=== PATIENT | male | born 1970 | race Caucasian/White ===

== ENCOUNTER 2017-11-07 09:44 | Emergency (ER) | payer MEDICARE, OTHER, SELFPAY ==
[2017-11-07 09:56] VITALS: BP 118/77; PULSE 64; RESP 15; TEMP 37.1; O2SAT 100; BMI 28.5
--- NOTE | 2017-11-07 10:02 | DI.RAD.S_ITS ---
PROCEDURE: XR FOOT RT MIN 3V INDICATIONS: wounds TECHNIQUE: 3 views of the right foot were acquired. COMPARISON: [facility], CR, XR FOOT LT MIN 3V, 11/07/2017, 9:42. FINDINGS: Bones: There is abnormal lucency in the 4th metatarsal distally as well as the base of the 4th proximal phalanx centered around the metatarsophalangeal joint. There is also fragmentation of the 4th metatarsal head as well as periosteal thickening along the 4th metatarsal shaft. The constellation of findings are suggestive of osteomyelitis/septic arthritis. Abnormal bony erosive changes and sclerosis are also demonstrated more distally within the 4th toe with the middle and distal phalanges not well visualized. Findings are compatible sequela of osteomyelitis and likely postsurgical changes. Erosive changes are also demonstrated within the 2nd and 3rd distal phalanges compatible with sequelae of osteomyelitis. There is lucency within the medial aspect of the 1st middle and distal phalanges associated with an overlying ulcer suspicious for osteomyelitis. A mild hallux valgus is present as well as a pes planus. Soft tissues: There is a soft tissue ulcer medially in the great toe. There is diffuse soft tissue swelling of the toes. IMPRESSION: 1. Findings compatible with osteomyelitis in the right forefoot as described including sequelae of osteomyelitis/septic arthritis centered at the 4th metatarsophalangeal joint. Dictated by: Jeremy Palacio M.D. on 11/07/2017 at 10:39 Approved by: Jeremy Palacio M.D. on 11/07/2017 at 10:47
--- NOTE | 2017-11-07 10:02 | DI.RAD.S_ITS ---
PROCEDURE: XR FOOT LT MIN 3V INDICATIONS: wounds TECHNIQUE: 3 views of the foot were acquired. COMPARISON: [facility], CR, XR FOOT RT MIN 3V, 11/07/2017, 9:42. FINDINGS: Bones: There are abnormal lucencies and erosive bony changes in the 2nd and 3rd toes with bony destruction of the 3rd middle and distal phalanges as well centered along the 3rd distal interphalangeal and metatarsophalangeal joints. Erosive changes also the centered along the 2nd proximal interphalangeal joint. There is a moderate hallux valgus. Mild degeneration is noted at the 1st metatarsophalangeal joint. Soft tissues: There is soft tissue swelling of the toes including marked enlargement of the 2nd and 3rd toes. IMPRESSION: 1. Findings compatible with osteomyelitis in the 2nd and 3rd toes including suspected septic arthritis of the 3rd metatarsophalangeal joint, 2nd proximal interphalangeal joint, and 3rd distal interphalangeal joint. Dictated by: Jeremy Palacio M.D. on 11/07/2017 at 10:47 Approved by: Jeremy Palacio M.D. on 11/07/2017 at 10:55
[2017-11-07 11:22] VITALS: BP 115/82; PULSE 55; RESP 14; O2SAT 100
--- NOTE | 2017-11-07 12:04 | ED.LOWEXIN ---
HPI - Extremity Injury (Lower) General Chief Complaint: Extremity Injury, Lower Stated Complaint: sent by doctor to have toes looked at-can see bone Time Seen by Provider: 11/07/17 10:47 Source: patient Mode of arrival: ambulatory Limitations: no limitations History of Present Illness HPI Narrative: Patient is a 47-year-old male who presents with bilateral foot pain he. He has what appears to be chronic osteomyelitis. His left foot is erythematous the dorsal side. He says it has been red for the last 4 days. He recently traveled from [place] to [place] on . He was told that he would likely need some toes amputated and was just waiting for the right times a however now his foot is red. He denies any increased pain he does have some chronic neuropathy. Is no fever or chills. Some wounds on his feet are actively drainage with a foul smell. Related Data Home Medications Medication Instructions Recorded Confirmed amoxicillin-pot clavulanate 1 tab PO BID 11/07/17 11/07/17 [Augmentin] diazepam 10 mg PO QID 11/07/17 11/07/17 hydrocodone-acetaminophen 1 tab PO 6XD 11/07/17 11/07/17 sulfamethoxazole-trimethoprim 1 tab PO BID 11/07/17 11/07/17 Allergies Allergy/AdvReac Type Severity Reaction Status Date / Time No Known Drug Allergies Allergy Verified 11/07/17 09:55 Review of Systems Review of Systems All systems reviewed & are unremarkable except as noted in HPI and below Constitutional Denies chills, Denies fever(s), Denies lethargy and Denies weakness ENT Ears, Nose, Mouth, and Throat: Denies change in voice, Denies neck pain and Denies sore throat Cardiovascular Denies chest pain, Denies irregular heart rhythm, Denies lightheadedness, Denies palpitations, Denies dyspnea, Denies dyspnea on exertion and Denies orthopnea Respiratory Denies cough, Denies dyspnea, Denies dyspnea on exertion and Denies wheezing Gastrointestinal Gastrointestinal: Denies abdominal pain, Denies change in bowel habits, Denies diarrhea, Denies nausea and Denies vomiting Musculoskeletal Reports as per HPI, Reports deformity, Reports arthralgias, Reports joint swelling and Denies neck pain Integumentary/Breasts Reports system reviewed and no additional complaints, except as docu and Reports as per HPI Neurologic Denies weakness Comments: neuropathy Endocrine Denies palpitations Comments: Used to be DM-now says he isn't not on meds. Allergic/Immunologic Denies wheezing PFSH Medical History Diabetes (Acute) Hypertension (Acute) Neuropathy associated with endocrine disorder (Acute) Surgical History Hx of spinal fusion (Acute) Social History Smoking Status: Current every day smoker Exam Initial Vital Signs Initial Vital Signs: Vital Signs Temperature 98.7 F 11/07/17 09:56 Pulse Rate 64 11/07/17 09:56 Respiratory Rate 15 11/07/17 09:56 Blood Pressure 118/77 11/07/17 09:56 Pulse Oximetry 100 11/07/17 09:56 Const General: cooperative and healthy appearing Nutritional Appearance: average body habitus HENMT Head: normal to inspection and normocephalic Eyes General: appearance normal, both eyes and all related structures Chest Chest: normal inspection of the chest Resp Effort & Inspection: normal respiratory effort, able to speak in complete sentences, no respiratory distress and no use of accessory muscles Auscultation: clear to auscultation bilaterally, no rales, no rhonchi and no wheezes Cardio Rate: regular rate Rhythm: regular rhythm Heart Sounds: no click, no gallops, no murmurs and no rubs Pulses: normal peripheral pulses Skin Other: Track dobbins, Erythema noted on the left dorsal all foot is outlined from yesterday. Left foot: Large ulcer on 2nd and 3rd toe, which does appear very deep. The 2nd toe is extremely swollen and deformed of there is some pus at the base of the toe. Left foot on the plantar side also has a very large open callus Right foot or: The great toe and 4th toe also have a dry ulcer Neuro General: alert, awake and oriented x3 Cranial Nerves: CN's II-XI intact bilaterally Course Orders Ordered: ED Orders 11/07/17 12:00 Basic Metabolic Panel Stat C-Reactive Protein Quant Stat Complete Blood Count AUTO DIFF Stat Erythrocyte Sedimentation Rate Stat Procalcitonin Stat 11/07/17 12:56 Blood Culture Stat Discontinued Medications Levofloxacin (Levaquin) 750 mg in 150 mls @ 100 mls/hr IV NOW ONE Stop: 11/07/17 16:51 Last Infusion: 11/07/17 17:43 Dose: 0 mls/hr Admin: 11/07/17 15:55 Dose: 100 mls/hr Vancomycin HCl 1,500 mg/ (Sodium Chloride) 500 mls @ 333.333 mls/hr IV NOW ONE Stop: 11/07/17 15:23 Last Admin: 11/07/17 17:59 Dose: 333.333 mls/hr Vital Signs - 8 hr 11/07/17 11:22 11/07/17 16:15 11/07/17 18:53 Temperature 98.9 F Pulse Rate 55 L 64 71 Respiratory Rate 14 16 14 Blood Pressure [Left Arm] 115/82 H 117/76 129/84 H Pulse Oximetry 100 100 99 11/07/17 19:01 Temperature Pulse Rate 66 Respiratory Rate 14 Blood Pressure [Left Arm] 118/78 Pulse Oximetry 99 MDM - Extremity Injury (Lower) Lab Data Attestation: I reviewed the patient's lab results. Result diagrams: 11/07/17 12:00 11/07/17 12:00 Lab Results 11/07/17 11/07/17 11/07/17 Range/Units 12:00 12:00 12:00 WBC 13.5 H (4.5-11.0) X10^3/uL RBC 4.09 L (4.5-5.9) X10^6/uL Hgb 13.5 (13.5-17.5) g/dL Hct 39.6 L (41-53) % MCV 96.7 (80-100) fL MCH 33.1 (26-34) PG MCHC 34.2 (30-36) % RDW 12.7 (11.6-14.8) % Plt Count 337 (150-400) X10^3/uL Neut % (Auto) 73.5 (50-75) % Lymph % (Auto) 15.5 L (25-40) % [place] % (Auto) 8.3 (3-14) % Eos % (Auto) 1.8 L (2-4) % Baso % (Auto) 0.9 (0-2) % Neut # (Auto) 9900 H (5643-8157) /uL ESR 44 H (0-15) MM/HR Sodium (137-145) mmol/L Potassium (3.4-5.1) mmol/L Chloride (98-107) mmol/L Carbon Dioxide (22-32) mmol/L BUN (9-20) mg/dL Creatinine (0.66-1.25) mg/dL Estimated GFR (>60) mL/min BUN/Creatinine Ratio (6-22) Glucose (70-100) mg/dL Calcium (8.4-10.2) mg/dL C-Reactive Protein (<1.0) mg/dL Procalcitonin < 0.05 (<0.5) ng/mL 11/07/17 Range/Units 12:00 WBC (4.5-11.0) X10^3/uL RBC (4.5-5.9) X10^6/uL Hgb (13.5-17.5) g/dL Hct (41-53) % MCV (80-100) fL MCH (26-34) PG MCHC (30-36) % RDW (11.6-14.8) % Plt Count (150-400) X10^3/uL Neut % (Auto) (50-75) % Lymph % (Auto) (25-40) % [place] % (Auto) (3-14) % Eos % (Auto) (2-4) % Baso % (Auto) (0-2) % Neut # (Auto) (2780-1669) /uL ESR (0-15) MM/HR Sodium 141 (137-145) mmol/L Potassium 4.7 (3.4-5.1) mmol/L Chloride 106 (98-107) mmol/L Carbon Dioxide 25 (22-32) mmol/L BUN 15 (9-20) mg/dL Creatinine 0.70 (0.66-1.25) mg/dL Estimated GFR > 60.0 (>60) mL/min BUN/Creatinine Ratio 21.4 (6-22) Glucose 108 H (70-100) mg/dL Calcium 8.7 (8.4-10.2) mg/dL C-Reactive Protein 14.3 H (<1.0) mg/dL Procalcitonin (<0.5) ng/mL Imaging Data left foot: Radiologist's impression: PROCEDURE: XR FOOT LT MIN 3V INDICATIONS: wounds TECHNIQUE: 3 views of the foot were acquired. COMPARISON: [facility], CR, XR FOOT RT MIN 3V, 11/07/2017, 9:42. FINDINGS: Bones: There are abnormal lucencies and erosive bony changes in the 2nd and 3rd toes with bony destruction of the 3rd middle and distal phalanges as well centered along the 3rd distal interphalangeal and metatarsophalangeal joints. Erosive changes also the centered along the 2nd proximal interphalangeal joint. There is a moderate hallux valgus. Mild degeneration is noted at the 1st metatarsophalangeal joint. Soft tissues: There is soft tissue swelling of the toes including marked enlargement of the 2nd and 3rd toes. IMPRESSION: 1. Findings compatible with osteomyelitis in the 2nd and 3rd toes including suspected septic arthritis of the 3rd metatarsophalangeal joint, 2nd proximal interphalangeal joint, and 3rd distal interphalangeal joint. Dictated by: Jeremy Palacio M.D. on 11/07/2017 at 10:47 Approved by: Jeremy Palacio M.D. on 11/07/2017 at 10:55 right foot: Radiologist's impression: PROCEDURE: XR FOOT RT MIN 3V INDICATIONS: wounds TECHNIQUE: 3 views of the right foot were acquired. COMPARISON: [facility], CR, XR FOOT LT MIN 3V, 11/07/2017, 9:42. FINDINGS: Bones: There is abnormal lucency in the 4th metatarsal distally as well as the base of the 4th proximal phalanx centered around the metatarsophalangeal joint. There is also fragmentation of the 4th metatarsal head as well as periosteal thickening along the 4th metatarsal shaft. The constellation of findings are suggestive of osteomyelitis/septic arthritis. Abnormal bony erosive changes and sclerosis are also demonstrated more distally within the 4th toe with the middle and distal phalanges not well visualized. Findings are compatible sequela of osteomyelitis and likely postsurgical changes. Erosive changes are also demonstrated within the 2nd and 3rd distal phalanges compatible with sequelae of osteomyelitis. There is lucency within the medial aspect of the 1st middle and distal phalanges associated with an overlying ulcer suspicious for osteomyelitis. A mild hallux valgus is present as well as a pes planus. Soft tissues: There is a soft tissue ulcer medially in the great toe. There is diffuse soft tissue swelling of the toes. IMPRESSION: 1. Findings compatible with osteomyelitis in the right forefoot as described including sequelae of osteomyelitis/septic arthritis centered at the 4th metatarsophalangeal joint. Dictated by: Jeremy Palacio M.D. on 11/07/2017 at 10:39 MDM Narrative Medical decision making narrative: This is likely chronic osteomyelitis with acute cellulitis. He has elevated ESR and CRP with mild leukocytosis. He does some mild neuropathy on his feet as well. There is questionable bone exposure on his left foot. He has been informed that he will likely need amputation of multiple toes. Dr. Scanlon hospitalist in the ED to evaluate patient. I think the patient needs to be transferred to a [facility] facility where the have orthopedics and vascular surgery if needed will likely need amputation. Is spoken to Dr. Nielson hospitalist at [place] who has been updated patient's symptoms and test results of accepts patient for transfer. Discharge Plan Departure Patient Disposition: [facility] Clinical Impression: Osteomyelitis, Cellulitis, Neuropathy Prescriptions: No Action hydrocodone-acetaminophen 10-325 mg Tablet 1 tab PO 6XD RF: 0 diazepam 10 mg Tablet 10 mg PO QID RF: 0 sulfamethoxazole-trimethoprim 800-160 mg Tablet 1 tab PO BID RF: 0 amoxicillin-pot clavulanate [Augmentin] 875-125 mg Tablet 1 tab PO BID RF: 0
[2017-11-07 12:22] LABS: Add Manual Diff / Slide Review NO; Basophils Percent Auto 0.9 % (0-2); Eosinophils Percent Auto 1.8 % (2-4); Hematocrit 39.6 % (41-53); Hemoglobin 13.5 g/dL (13.5-17.5); Lymphocytes Percent Auto 15.5 % (25-40); Mean Corpuscular HGB Conc 34.2 % (30-36); Mean Corpuscular Hemoglobin 33.1 PG (26-34); Mean Corpuscular Volume 96.7 fL (80-100); Monocytes Percent Auto 8.3 % (3-14); Neutrophils Absolute Auto 9900 /uL (3000-5900); Neutrophils Percent Auto 73.5 % (50-75); Platelet Count 337 X10^3/uL (150-400); Red Blood Cell Count 4.09 X10^6/uL (4.5-5.9); Red Cell Distribution Width 12.7 % (11.6-14.8); White Blood Cell Count 13.5 X10^3/uL (4.5-11.0)
[2017-11-07 12:45] LABS: Erythrocyte Sedimentation Rate 44 MM/HR (0-15)
[2017-11-07 12:54] LABS: Procalcitonin < 0.05 ng/mL (<0.5)
[2017-11-07 13:25] LABS: BUN Creatinine Ratio 21.4 (6-22); Blood Urea Nitrogen 15 mg/dL (9-20); Calcium 8.7 mg/dL (8.4-10.2); Carbon Dioxide 25 mmol/L (22-32); Chloride 106 mmol/L (98-107); Estimated Glomerular Filt Rate > 60.0 mL/min (>60); Glucose 108 mg/dL (70-100); Potassium 4.7 mmol/L (3.4-5.1); Sodium 141 mmol/L (137-145)
[2017-11-07 13:35] LABS: HEMOLYSIS 55 (0-50)
[2017-11-07 13:36] LABS: C-Reactive Protein Quant 14.3 mg/dL (<1.0)
--- NOTE | 2017-11-07 14:33 | PM.CN ---
History of Present Illness Date Patient Seen: 11/07/17 Time Patient Seen: 14:34 Chief complaint: sent by doctor to have toes looked at-can see bone Reason for consult: Diabetic foot ulcer with osteomyelitis and cellulitis Requesting provider: Laura Bianchi Narrative: Patient is a 47-year-old male with diabetes complicated by neuropathy, new to our system, came into the emergency department due to ulcer on his left foot. He was apparently seen at walk-in clinic yesterday, given dose of Bactrim, and told to come into the ER which she did today. He had seen a water resource engineer in [place] who told him he would need amputation of 1 or more toes. He actually just took a train and bus ride up to and a [place] so he could leave his service dog with his parents and get this taken care of. In meantime, he has noticed more redness on left foot. PFSH Medical History Diabetes (Acute) Hypertension (Acute) Neuropathy associated with endocrine disorder (Acute) Surgical History Hx of spinal fusion (Acute) Social History Smoking Status: Current every day smoker Meds Allergies Allergy/AdvReac Type Severity Reaction Status Date / Time No Known Drug Allergies Allergy Verified 11/07/17 09:55 Review of Systems Review of Systems All systems reviewed & are unremarkable except as noted in HPI and below Exam Vital Signs (past 8 hours): - 11/07/17 09:56 11/07/17 11:22 Temperature 98.7 F Pulse Rate 64 55 L Respiratory Rate 15 14 Blood Pressure 118/77 Blood Pressure [Left Arm] 115/82 H Pulse Oximetry 100 100 Oxygen Delivery Method Room Air Narrative Exam Narrative: Limited exam performed. General: Alert and pleasant, cooperative Extremities: There is bilateral pretibial edema. There is absence of light touch sensation on both feet. Left foot: There is a large dry ulcer on the distal 2nd to 3rd metatarsal which appears deep to the bone. There is hallucis valgus deformity of the left 2nd toe which is severely swollen and erythematous as well with erythema extending on to the mid forefoot. Right foot: There is dry ulcer on the big toe and 4th toe without surrounding cellulitis Objective Labs Result Diagrams: 11/07/17 12:00 11/07/17 12:00 Labs: Left foot x-rays: Bones: There are abnormal lucencies and erosive bony changes in the 2nd and 3rd toes with bony destruction of the 3rd middle and distal phalanges as well centered along the 3rd distal interphalangeal and metatarsophalangeal joints. Erosive changes also the centered along the 2nd proximal interphalangeal joint. There is a moderate hallux valgus. Mild degeneration is noted at the 1st metatarsophalangeal joint. Soft tissues: There is soft tissue swelling of the toes including marked enlargement of the 2nd and 3rd toes. Right t foot x-rays: Bones: There is abnormal lucency in the 4th metatarsal distally as well as the base of the 4th proximal phalanx centered around the metatarsophalangeal joint. There is also fragmentation of the 4th metatarsal head as well as periosteal thickening along the 4th metatarsal shaft. The constellation of findings are suggestive of osteomyelitis/septic arthritis. Abnormal bony erosive changes and sclerosis are also demonstrated more distally within the 4th toe with the middle and distal phalanges not well visualized. Findings are compatible sequela of osteomyelitis and likely postsurgical changes. Erosive changes are also demonstrated within the 2nd and 3rd distal phalanges compatible with sequelae of osteomyelitis. There is lucency within the medial aspect of the 1st middle and distal phalanges associated with an overlying ulcer suspicious for osteomyelitis. A mild hallux valgus is present as well as a pes planus. Soft tissues: There is a soft tissue ulcer medially in the great toe. There is diffuse soft tissue swelling of the toes. IMPRESSION: 1. Findings compatible with osteomyelitis in the right forefoot as described including sequelae of osteomyelitis/septic arthritis centered at the 4th metatarsophalangeal joint IMPRESSION: 1. Findings compatible with osteomyelitis in the 2nd and 3rd toes including suspected septic arthritis of the 3rd metatarsophalangeal joint, 2nd proximal interphalangeal joint, and 3rd distal interphalangeal joint. Laboratory Results - last 24 hr 11/07/17 11/07/17 11/07/17 12:00 12:00 12:00 WBC 13.5 H RBC 4.09 L Hgb 13.5 Hct 39.6 L MCV 96.7 MCH 33.1 MCHC 34.2 RDW 12.7 Plt Count 337 Neut % (Auto) 73.5 Lymph % (Auto) 15.5 L [place] % (Auto) 8.3 Eos % (Auto) 1.8 L Baso % (Auto) 0.9 Neut # (Auto) 9900 H ESR 44 H Sodium Potassium Chloride Carbon Dioxide BUN Creatinine Estimated GFR BUN/Creatinine Ratio Glucose Calcium C-Reactive Protein Procalcitonin < 0.05 11/07/17 12:00 WBC RBC Hgb Hct MCV MCH MCHC RDW Plt Count Neut % (Auto) Lymph % (Auto) [place] % (Auto) Eos % (Auto) Baso % (Auto) Neut # (Auto) ESR Sodium 141 Potassium 4.7 Chloride 106 Carbon Dioxide 25 BUN 15 Creatinine 0.70 Estimated GFR > 60.0 BUN/Creatinine Ratio 21.4 Glucose 108 H Calcium 8.7 C-Reactive Protein 14.3 H Procalcitonin Assessment & Plan Plan: Assessment/Plan Narrative: 1. Left foot chronic osteomyelitis with acute cellulitis: Patient has diabetic neuropathy with likely stage IV chronic osteomyelitis in the distal left 2nd to 3rd metatarsal as well as involving the 2nd toe hallux deformity. There is also acute cellulitis. CRP 14, ESR 44, WBC 13.5. Patient will need surgical consultation and very possible will need at least amputation of the toe and may be partial distal forefoot amputation. Infectious disease consultation will also be helpful in antibiotic management. This will be best achieved at a tertiary care hospital where there is specialty availability. Recommend transfer from ER to tertiary care hospital. 2. Probable right foot chronic osteomyelitis: Not clear if x-ray findings are sequelae of prior osteomyelitis in the right foot versus ongoing infection. Further diagnostic workup required.
[2017-11-07] MEDS: levoFLOXacin 750 MG/150 ML PIGGYBACK 100 MG IV (15:55)
[2017-11-07 16:15] VITALS: BP 117/76; PULSE 64; RESP 16; O2SAT 100
[2017-11-07] MEDS: VANCOMYCIN 1,500 MG in SODIUM CHLORIDE 0.9% 500 ML 333.333 ML IV (17:59)
[2017-11-07 18:53] VITALS: BP 129/84; PULSE 71; RESP 14; TEMP 37.2; O2SAT 99
[2017-11-07 19:01] VITALS: BP 118/78; PULSE 66; RESP 14; O2SAT 99
== END 2017-11-07 19:27 | disposition short-term general hospital (02) ==
PROVIDERS: Emergency Provider Emergency Medicine
DX: M86.9 Osteomyelitis, unspecified (principal); L03.90 Cellulitis, unspecified; G62.9 Polyneuropathy, unspecified
CPT/HCPCS: 36591; 73630; 80048; 84145; 85025; 85651; 86140; 87040; 96365; 96366; 96375; 99283; 99284; J1956